=== PATIENT | female | born 1985 | race American Indian/Alaskan Native ===

== ENCOUNTER 2016-05-23 15:19 | Outpatient (CLI) | payer BC, OTHER ==
--- NOTE | 2016-05-23 16:26 | Mammography Report ---
Bilateral mammogram and sonogram right and left breast as followup to previous sonogram dated 11/12/15. No previous mammogram studies available. Findings: Mammogram reveals bilateral dense breast parenchyma. There is no distinct mass or microcalcification noted. Suspicious density is identified at approximate 5:00 position left breast. Measures approximately 1 cm. No microcalcification. Normal axilla. Sonogram reveals cystic mass measuring 1.2 cm in diameter at the 5:30 position corresponding to the density seen on the mammogram. There is hypoechoic oval well defined mass with central echogenicity noted at 12:00 position right breast probably a lymph node or septated cyst. Impression: Benign cyst 5:00 left breast. Probably benign cyst 12:00 position right breast. Six-month followup with sonogram recommended to establish stability of lesion. BI-RADS CATEGORY: 3 = Probably benign ACR BI-RADS MAMMOGRAPHIC CODES: 0 = Needs additional imaging evaluation; 1 = Negative; 2 = Benign; 3 = Probably benign; 4 = Suspicious; 5 = Malignant; 6 = Known biopsy-proven malignancy COMMENT: 1. Dense breast tissue, i.e., adenosis, fibrocystic changes, etc., may obscure an underlying neoplasm. 2. Approximately 10% of cancers are not detected with mammography. 3. A negative mammography report should not delay biopsy if a clinically suspicious mass is present. COMMENT: Patient follow-up letters are generated in [id number]
== END 2016-05-23 15:20 | disposition home or self-care (01) ==
LOC: MAMMO 15:19
PROVIDERS: ATTEND Family Medicine
DX: N60.02 Solitary cyst of left breast (principal); R92.8 Other abnormal and inconclusive findings on diagnostic imaging of breast
CPT/HCPCS: 76642; G0204; 77066